=== PATIENT | female | born 1980 | race American Indian/Alaskan Native ===

== ENCOUNTER 2018-07-29 18:05 | Inpatient (IN) | payer MEDICAID ==
[2018-07-29 19:23] LABS: BASO # 0.1 K/uL (0.0-0.2); BASO % 1.5 % (0.0-2.0); EOS # 0.1 K/uL (0.0-0.7); EOS % 1.3 % (0.0-4.0); HEMOGLOBIN 13.7 g/dL (11.0-16.0); LYMPH # 2.3 K/uL (1.0-4.3); LYMPH % 30.1 % (20.0-40.0); MEAN CELL VOLUME 91.1 fL (81.0-99.0); MEAN CORPUSCULAR HEMOGLOBIN 30.9 pg (27.0-31.0); MEAN CORPUSCULAR HGB CONC 33.9 g/dL (33.0-37.0); MEAN PLATELET VOLUME 8.6 fL (7.2-11.7); MONO # 0.4 K/uL (0.0-0.8); MONO % 5.6 % (0.0-10.0); NEUT # 4.8 K/uL (1.8-7.0); NEUT % 61.5 % (50.0-75.0); RBC 4.43 Mil/uL (3.80-5.20); RED CELL DISTRIBUTION WIDTH 12.8 % (11.5-14.5); WHITE BLOOD COUNT 7.7 K/uL (4.8-10.8)
[2018-07-29 19:25] LABS: HCG,QUALITATIVE URINE NEGATIVE (NEGATIVE)
[2018-07-29 19:26] LABS: SQUAMOUS EPITHIAL < 1 /hpf (0-5); URINE BILIRUBIN NEGATIVE (NEGATIVE); URINE BLOOD NEGATIVE (NEGATIVE); URINE CLARITY Clear (Clear); URINE COLOR Straw (YELLOW); URINE GLUCOSE (UA) NORMAL (Normal); URINE LEUKOCYTE ESTERASE NEG Leu/uL (Negative); URINE PROTEIN NEGATIVE (NEGATIVE); URINE UROBILINOGEN NORMAL mg/dL (0.2-1.0)
--- NOTE | 2018-07-29 19:26 | C.PDOC ---
History Of Present Illness 37 year old female with Hx of substance abuse for the past year presents requesting detox. Patient uses PCP, last use at 3:00PM. Denies ETOH or opiate abuse. Chief Complaint (Nursing): Substance Abuse History Per: Patient History/Exam Limitations: no limitations Onset/Duration Of Symptoms: Days (Yesterday) Current Symptoms Are (Timing): Still Present Suicide/Self Injury Attempted (Context): None Modifying Factor(s): Other (PCP) Involuntary Hold By: None Recent travel outside of the [place]: No Past Medical History Reviewed: Historical Data, Nursing Documentation, Vital Signs Vital Signs: Last Vital Signs Temp 98.9 F 07/29/18 18:10 Pulse 84 07/29/18 18:10 Resp 20 07/29/18 18:10 BP 159/98 H 07/29/18 18:10 Pulse Ox 98 07/29/18 18:10 Family History: States: No Known Family Hx - Social History Hx Alcohol Use: Yes Hx Substance Use: Yes - Immunization History Hx Tetanus Toxoid Vaccination: No Hx Influenza Vaccination: No Hx Pneumococcal Vaccination: No Review Of Systems Constitutional: Negative for: Fever, Chills Cardiovascular: Negative for: Chest Pain, Palpitations Respiratory: Negative for: Cough, Shortness of Breath Gastrointestinal: Negative for: Nausea, Vomiting Neurological: Negative for: Weakness, Numbness Physical Exam - Physical Exam Appears: Non-toxic Skin: Normal Color, Warm, Dry Head: Atraumatic, Normacephalic Eye(s): bilateral: Normal Inspection Oral Mucosa: Moist Chest: Symmetrical, No Tenderness Cardiovascular: Rhythm Regular Respiratory: Normal Breath Sounds, No Rales, No Rhonchi, No Wheezing Gastrointestinal/Abdominal: Soft, No Tenderness Neurological/Psych: Oriented x3, Normal Speech ED Course And Treatment - Laboratory Results Result Diagrams: 07/29/18 19:19 07/29/18 19:19 O2 Sat by Pulse Oximetry: 98 Progress Note: Blood work and urinalysis ordered. Disposition Discussed With : Chaya Cano Doctor Will See Patient In The: Hospital Counseled Patient/Family Regarding: Diagnosis - Disposition Disposition: HOSPITALIZED Disposition Time: 20:40 Condition: STABLE Forms: [facility] (M[place]) - POA Present On Arrival: None - Clinical Impression Clinical Impression: Drug abuse, Substance abuse or dependence - Scribe Statement The provider has reviewed the documentation as recorded by the Scribe Jason Guardado All medical record entries made by the Jewel were at my direction and personally dictated by me. I have reviewed the chart and agree that the record accurately reflects my personal performance of the history, physical exam, medical decision making, and the department course for this patient. I have also personally directed, reviewed, and agree with the discharge instructions and disposition.
--- NOTE | 2018-07-29 19:26 | C.PDOC ---
Chief Complaint (Nursing): Substance Abuse Past Medical History Vital Signs: Last Vital Signs Temp 98.9 F 07/29/18 18:10 Pulse 84 07/29/18 18:10 Resp 20 07/29/18 18:10 BP 159/98 H 07/29/18 18:10 Pulse Ox 98 07/29/18 18:10 - Social History Hx Alcohol Use: Yes Hx Substance Use: Yes - Immunization History Hx Tetanus Toxoid Vaccination: No Hx Influenza Vaccination: No Hx Pneumococcal Vaccination: No ED Course And Treatment O2 Sat by Pulse Oximetry: 98 Disposition - Disposition
[2018-07-29 19:37] LABS: ALB/GLOB RATIO 1.7 (1.0-2.1); ALBUMIN 4.8 g/dL (3.5-5.0); ALT/SGPT 15 U/L (9-52); AST/SGOT 24 U/L (14-36); BLOOD UREA NITROGEN 10 mg/dL (7-17); CALCIUM 9.6 mg/dl (8.6-10.4); GFR NON-AFRICAN AMERICAN > 60
[2018-07-29 19:39] LABS: BARBITURATES, UR NEGATIVE (NEGATIVE); BENZODIAZEPINES, UR NEGATIVE (NEGATIVE); OPIATES, UR NEGATIVE (NEGATIVE)
[2018-07-29 19:44] LABS: PHENCYCLIDINE, UR POSITIVE (NEGATIVE)
--- NOTE | 2018-07-29 21:06 | PCM.BM ---
<Hector Connor - Last Filed: 07/29/18 21:04> Treatment Plan Problems - Problems identified on initial assessmt denial Date Initiated: 07/29/18 Time Initiated: 21:04 Assessment reference: NA Status: Active defensive coping Date Initiated: 07/29/18 Time Initiated: 21:05 Assessment reference: NA Status: Active high risk ;violence Date Initiated: 07/29/18 Time Initiated: 21:06 Assessment reference: NA Status: Active Treatment assets and liabiliti Patient Assests: cooperative, cognitively intact Patient Liabilities: substance abuse - Milieu Protocol Maintain good personal hygiene: daily Encourage regular showers, daily Remind patient to perform daily oral care, daily Assist patient to perform ADL's Conduct patient checks and document Observation sheet: Q15 minutes Maintain personal safety: every shift Educate patient to report safety concerns to staff, every shift Monitor environment for contraband/sharps Medication safety: Monitor for expected outcome, potential side effects: every shift, Assess barriers to learning: every shift, Assess readiness for medication education: every shift <Carlos Rm - Last Filed: 07/31/18 19:21> - Diagnosis (1) Sedative, hypnotic or anxiolytic use disorder, severe, dependence Status: Acute Interventions: 07/31/18 19:21 * Assess 7x/week regarding severity of withdrawal * Educate regarding risks, benefits, side effects and alternatives of medications * Use Motivational Interviewing for abstinence * Use CBT for relapse prevention * Medication management for withdrawal symptoms * Encourage medication assisted treatment *
[2018-07-29] MEDS ORDERED: Magnesium Hydroxide Susp 30 ml UD PO PRN (22:25)
[2018-07-29] MEDS ORDERED: Aluminum Hydroxide/Magnesium Hydroxide Susp (30 mL) PO PRN (22:25)
--- NOTE | 2018-07-30 12:03 | PCM.PSYCH ---
Initial Psychiatric Evaluation - Initial Psychiatric Evaluation Type of Admission: Voluntary Legal Status: Capacity Chief Complaint (in patient's own words): "I need to stop" History of Present Illness and Precipitating Events: Patient is a 37 -year-old, woman who is single, working for a temporary agency in between jobs, and living alone in [place], [place]. She has 5 children, ages 21, 16, 12, 10, and 7 who are currently under the care of the eldest 21-year old daughter and the brother of the patient. She presents for Xanax and Percocet detox. 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 Patient states that she is tired of being on these drugs and wants to stop to be able to hold a job. Patient also smokes 2-3 cigarettes of PCP daily. She states that the last time she smoked was yesterday. She has been using PCP for the last year. She has been to detox before at [facility]. She comes to [facility] from [facility], an [facility] in [place], [place]. Patient also reports taking 2-4 pills of unknown mg of Xanax that she buys from the street, daily. She has been taking Xanax for the past year. She also reports taking 3-4 of 10mg Percocet pills, daily. She was given a prescription for Percocet after a car battery was dropped on her foot and continues to abuse more meds. She also reports smoking a pack per day of cigarettes. She denies using any other substances including heroin, alcohol, cocaine, and marijuana. Patient complains of not being able to sleep all night and being anxious. She denies any suicidal or homicidal ideation, hallucinations, and paranoia. Past Psychiatric History: some anxiety and depression Family Psych History: none PMHx: none Meds: none Current Medications: Active Medications Generic Name Dose Route Start Last Admin Trade Name Freq PRN Reason Stop Dose Admin Al Hydrox/Mg Hydrox/Simethicone 30 ml 07/29/18 22:25 Maalox 30 Ml PO TID PRN Indigestion / Heartburn Chlordiazepoxide 25 mg 07/29/18 22:27 Librium PO Q4H PRN Alcohol Withdrawal Chlordiazepoxide 25 mg 07/30/18 10:00 07/30/18 10:34 Librium PO 08/03/18 09:59 25 mg Q6H SARINA Administration Taper Clonidine HCl 0.1 mg 07/29/18 22:25 Catapres PO Q4 PRN COWS Score More or Equal to 5 Dicyclomine HCl 10 mg 07/29/18 22:25 Bentyl PO Q6 PRN Muscle spasm Docusate Sodium 100 mg 07/29/18 22:25 Colace PO DAILY PRN Constipation Hydroxyzine HCl 50 mg 07/29/18 22:28 Atarax PO QID PRN Anxiety Ibuprofen 600 mg 07/29/18 22:25 Motrin Tab PO Q6 PRN Pain, moderate (4-7) Loperamide HCl 2 mg 07/29/18 22:27 Imodium PO Q8 PRN Diarrhea Magnesium Hydroxide 30 ml 07/29/18 22:25 Milk Of Magnesia PO 08/01/18 10:01 BID PRN Constipation Nicotine 1 patch 07/30/18 10:00 07/30/18 09:01 Nicoderm Cq TD 1 patch DAILY SARINA Administration Ondansetron HCl 4 mg 07/29/18 22:25 Zofran Tab PO Q8 PRN Nausea/Vomiting Pseudoephedrine HCl 60 mg 07/29/18 22:27 Sudafed Tab PO QID PRN Nasal/Sinus Congestion Trazodone HCl 50 mg 07/29/18 22:28 Desyrel PO HS PRN Sleep Past Psychiatric History - Past Psychiatric History Pertinent Medical Hx (Current Medical&Sleep Prob, Allergies): Allergies Allergy/AdvReac Type Severity Reaction Status Date / Time No Known Allergies Allergy Unverified 07/29/18 18:11 No Known Home Med 07/29/18 Review of Systems - Psychiatric Psychiatric: Abnormal Sleep Pattern, Anhedonia, Anxiety, Depression (mild), Difficulty Concentrating, Mood Swings. absent: Hallucinations, Homicidal Ideation, Paranoia, Suicidal Ideation Mental Status Examination - Personal Presentation Personal Presentation: Looks stated age - Affect Affect: Constricted - Motor Activity Motor Activity: Calm - Reliability in Providing Information Reliability in Providing Information: Good - Speech Speech: Organized - Mood Mood: Depressed, Anxious - Formal Thought Process Formal Thought Process: No Impairment - Cognitive Functions Orientation: Person Attention/Concentration: Easily distracted Estimate of Intelligence: Average Judgement: Intact, as evidence by: Insight regarding need for hospitalization Memory: Recent intact, as evidence by: Ability to recall events of the day, Remote intact, as evidenced by: Abilit to recall sig. life events - Risk Risk: Withdrawal, Diminished functioning - Strength & Assets Inventory Strength & Assets Inventory: Family support, Cooperative - Limitations Limitations: Other DSM 5 DX - Recommended/Plan of Treatment Treatment Recommendations and Plan of Treatment: Taper with librium Gabapentin for augmentation if needed As needed medications All risks, benefits and alternatives of the meds discussed, and the pt agreed and understood. Attend groups and activities Supportive therapy and psychoeducation [place] for abstinence CBT for relapse prevention Encourage MAT Refer to rehab or IOP, and self-help groups Teach healthy lifestyle methods, i.e. diet, exercise, meditation Smoking cessation with MT Nicotine patch if needed 34 min Projected ELOS: 4-5 days Prognosis: good with treatment - Smoking Cessation Smoking Cessation Initiated: Yes
--- NOTE | 2018-07-31 21:19 | PCM.PYCHPN ---
Psychiatric Progress Note - Psychiatric Progress Note Patient Chief Complaint: "I need to stop" Medication Change: Yes Medical Record Reviewed: Yes Mental Status Examination - Cognitive Function Orientation: Person - Mood Mood: Depressed, Anxious - Affect Affect: Constricted - Formal Thought Process Formal Thought Process: No Impairment Goal/Treatment Plan - Goal/Treatment Plan Progress Toward Problem(s) and Goals/Treatment Plan: Taper with librium Gabapentin for augmentation if needed As needed medications All risks, benefits and alternatives of the meds discussed, and the pt agreed and understood. Attend groups and activities Supportive therapy and psychoeducation [place] for abstinence CBT for relapse prevention Encourage MAT Refer to rehab or IOP, and self-help groups Teach healthy lifestyle methods, i.e. diet, exercise, meditation Smoking cessation with [place] Nicotine patch if needed 34 min
--- NOTE | 2018-08-02 01:13 | PCM.PYCHPN ---
Psychiatric Progress Note - Psychiatric Progress Note Patient seen today, length of contact: 15 min Patient Chief Complaint: "I need to stop" Medication Change: Yes Medical Record Reviewed: Yes Mental Status Examination - Cognitive Function Orientation: Person - Mood Mood: Depressed, Anxious - Affect Affect: Constricted - Formal Thought Process Formal Thought Process: No Impairment Goal/Treatment Plan - Goal/Treatment Plan Progress Toward Problem(s) and Goals/Treatment Plan: Taper with librium Gabapentin for augmentation if needed As needed medications All risks, benefits and alternatives of the meds discussed, and the pt agreed and understood. Attend groups and activities Supportive therapy and psychoeducation [place] for abstinence CBT for relapse prevention Encourage MAT Refer to rehab or IOP, and self-help groups Teach healthy lifestyle methods, i.e. diet, exercise, meditation Smoking cessation with [place] Nicotine patch if needed 34 min
--- NOTE | 2018-08-02 09:00 | PCM.PYCHDC ---
Mental Status Examination - Mental Status Examination Orientation: Person Discharge Summary - Discharge Note Consultations:: List each consultation separately and include: 1. Reason for request. 2. Findings. 3. Follow-up Summary of Hospital Course include:: 1. Description of specific treatment plan utilized for patients during their course of treatmen. 2. Summarize the time- course for resolution of acute symptoms and/or regressed behaviors. 3. Describe issues identified and worked on during hospitalization. 4. Describe medication utilized. 5. Describe medical problems identified and treated. 6. Reassessment of suicide risk Summary of Hospital Course: Patient is a 37 -year-old, woman who is single, working for a temporary agency in between jobs, and living alone in [place], [place]. She has 5 children, ages 21, 16, 12, 10, and 7 who are currently under the care of the eldest 21-year old daughter and the brother of the patient. She presents for Xanax and Percocet detox. 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 Patient states that she is tired of being on these drugs and wants to stop to be able to hold a job. Patient also smokes 2-3 cigarettes of PCP daily. She states that the last time she smoked was yesterday. She has been using PCP for the last year. She has been to detox before at [facility]. She comes to [facility] from [facility], an [facility] in [place], [place]. Patient also reports taking 2-4 pills of unknown mg of Xanax that she buys from the street, daily. She has been taking Xanax for the past year. She also reports taking 3-4 of 10mg Percocet pills, daily. She was given a prescription for Percocet after a car battery was dropped on her foot and continues to abuse more meds. She also reports smoking a pack per day of cigarettes. She denies using any other substances including heroin, alcohol, cocaine, and marijuana. Patient complains of not being able to sleep all night and being anxious. She denies any suicidal or homicidal ideation, hallucinations, and paranoia. Past Psychiatric History: some anxiety and depression Family Psych History: none PMHx: none Meds: none She was aloof a little and did not score re opioids. She will consider [facility]. - Diagnosis (1) Sedative, hypnotic or anxiolytic use disorder, severe, dependence Current Visit: Yes Status: Acute - Final Diagnosis (DSM 5) Condition upon Discharge: STABLE Disposition: HOME/ ROUTINE Follow-up Treatment Plan: Taper with librium Gabapentin for augmentation if needed As needed medications All risks, benefits and alternatives of the meds discussed, and the pt agreed and understood. Attend groups and activities Supportive therapy and psychoeducation [place] for abstinence CBT for relapse prevention Encourage MAT Refer to rehab or IOP, and self-help groups Teach healthy lifestyle methods, i.e. diet, exercise, meditation Smoking cessation with [place] Nicotine patch if needed 34 min Prescriptions/Medication Reconciliation: hydrOXYzine HCl [Atarax] 50 mg PO DAILY PRN #30 tab PRN Reason: Anxiety traZODone [Desyrel] 50 mg PO HS PRN #30 tab PRN Reason: Sleep
[2018-08-02 09:30] VITALS: BP 118/81; PULSE 80; RESP 18; TEMP 97.4; O2SAT 99
== END 2018-08-02 10:27 | disposition home or self-care (01) | DRG 748 ==
LOC: C.ER 18:05 → C.7D 20:41
PROVIDERS: ADMIT Psychiatry & Neurology Psychiatry; ATTEND Psychiatry & Neurology Psychiatry
PROC: GZ56ZZZ Individual Psychotherapy, Supportive (ICD-10-PCS; principal; 2018-07-29)
DX: F16.90 Hallucinogen use, unspecified, uncomplicated (principal); F17.210 Nicotine dependence, cigarettes, uncomplicated; Z87.828 Personal history of other (healed) physical injury and trauma